=== PATIENT | male | born 1940 | race Caucasian/White ===

== ENCOUNTER 2018-03-06 14:05 | Day surgery (SDC) | payer OTHER ==
[~2018-03-06] VITALS: Ht 175.3 cm; Wt 88.5 kg
[~2018-03-06 14:05] MED LIST: ACULAR 0.5100 DROP/5 RIGHT EYE; ALPHAGAN 0100 DROP/5 RIGHT EYE; MURO-128 5300 DROP/1 RIGHT EYE; OCUFLOX 0.100 DROP/5 RIGHT EYE; PRED FORTE100 DROP/5 RIGHT EYE; RHOPRESSA2.5 ML RIGHT EYE
[2018-03-06 14:40] VITALS: BP 153/70
[2018-03-06 14:43] LABS: HEMATOCRIT 43.6 % (38.0-50.0); HEMOGLOBIN 14.6 G/DL (12.5-16.6); MCH 31.5 PG (29.0-34.0); MCHC 33.5 G/DL (30.0-36.0); PLATELET COUNT 150 K/uL (156-360); RBC DIS.WIDTH-CV 13.4 % (11.8-14.6); RED BLOOD COUNT 4.64 M/uL (4.00-5.50); WHITE BLOOD COUNT 11.3 K/uL (4.1-10.2)
[2018-03-06 14:51] LABS: ALBUMIN 4.4 g/dL (3.2-4.8); CHLORIDE 110 mEq/L (99-109); POTASSIUM 4.1 mEq/L (3.7-5.4); SODIUM 140 mEq/L (136-147)
[2018-03-06 14:53] LABS: GLUCOSE 89 mg/dL (70-99)
[2018-03-06 14:54] LABS: TOTAL PROTEIN 8.2 g/dL (6.4-8.3)
[2018-03-06 14:55] LABS: TOTAL BILIRUBIN 0.7 mg/dL (0.0-1.0)
[2018-03-06 14:57] LABS: ALKALINE PHOSPHATASE 125 IU/L (3-129); CREATININE 1.9 mg/dL (0.6-1.3); GFR ESTIMATE (CALCULATED) 37 mL/min/ (58.99-99999)
[2018-03-06 14:58] LABS: UREA NITROGEN (BUN) 16 mg/dL (9-23)
[2018-03-06 14:59] LABS: AST (GOT) 90 IU/L (2-34)
[2018-03-06 15:00] LABS: ALT (GPT) 118 IU/L (3-49)
== END 2018-03-06 18:32 | disposition home or self-care (01) ==
LOC: SDC 14:05
PROVIDERS: Ophthalmology
DX: H44.001 Unspecified purulent endophthalmitis, right eye (principal)
CPT/HCPCS: 80053; 85027; 87102; 87205; J0713; J1100; J3370; J3465